=== PATIENT | male | born 1960 | race Two or more races ===

== ENCOUNTER → 2024-10-23 | Day surgery (SDC) | payer OTHER ==
[2024-10-18 16:08] LABS: INR 1.05; PARTIAL THROMBOPLASTIN TIME 28.6 SECONDS (22.0-34.0); PROTHROMBIN TIME 11.4 SECONDS (9.0-11.5)
[~2024-10-23] MED LIST: AMLODIPINE BESY10 MG PO; DIPHENHYDRAMINE HCL 50 MG/ML VIAL 1ML IV ONE; ELIQUIS2.5 MG PO; HUMULIN 70100 UNIT/2; JARDIANCE10 MG PO; MIDAZOLAM HCL 2 MG/2 ML VIAL IV ONE; ROSUVASTATIN CA40 MG PO; SYNTHROID200 MCG PO; TENORMIN50 M1 PO; ZETIA10 MG PO; fentaNYL CITRATE 50 MCG/ML AMPUL IV PUSH ONE
== END | disposition home or self-care (01) ==
LOC: ADM 10-18 13:00 → CIR.AMB 06:33
PROVIDERS: ATTEND Internal Medicine
DX: D12.2 Benign neoplasm of ascending colon (principal); D12.3 Benign neoplasm of transverse colon; D12.4 Benign neoplasm of descending colon; D12.5 Benign neoplasm of sigmoid colon; K63.5 Polyp of colon; Z91.011 Allergy to milk products